=== PATIENT | male | born 1975 | race Hispanic/Latino ===

== ENCOUNTER 2021-11-27 12:46 | Emergency (ER) | payer SELFPAY ==
--- NOTE | 2021-11-27 12:53 | ED.WOUNDLAC ---
HPI - Wound/Laceration General Chief Complaint: Wound/Laceration Stated Complaint: cut bottom lip Time Seen by Provider: 11/27/21 13:42 Source: patient and RN notes reviewed Mode of arrival: ambulatory Limitations: no limitations History of Present Illness HPI narrative: 46-year-old male presents with concern for injury below his mouth. Reports he was hit in the area by the head of a baby horse just prior to arrival. He reports a cut to the bottom of his lip, he also reports a cut on the inside of his lip. He denies any loose teeth, head injury. He denies tongue injury. He is not up-to-date on his tetanus vaccination Location: face Related Data Allergies Allergy/AdvReac Type Severity Reaction Status Date / Time No Known Allergies Allergy Verified 11/27/21 13:52 Review of Systems Review of Systems: CONSTITUTIONAL: Denies malaise, chills, sweats, or fever. SKIN: Reports laceration below the lower MUSCULOSKELETAL: Denies muscle skeletal pain. Denies any decree strength, sensation and oral movements, lip or face movements NEUROLOGIC: Denies numbness, weakness All systems reviewed & are unremarkable except as noted in HPI and below PMFSH Comments At time of signature, agree with nursing past medical, surgical, social and family history. There is no relevant family history pertinent to the presenting complaint Exam Narrative: GENERAL: Well-appearing, well-nourished, and in no acute distress. HEAD: Normocephalic, atraumatic. EYES: PERRLA, conjunctivae clear, and EOMI. ENT: Mucous membranes moist. Oropharynx without edema, erythema or lesions. NECK: Supple. No lymphadenopathy CHEST: Clear to auscultation. No respiratory distress. HEART: Regular rate and rhythm. SKIN: Warm, dry. 2 cm laceration noted below the bottom lip, through and through to the laceration on the inside of the lip approximately 1.5 cm NEURO: Alert and oriented x3. PSYCH: Normal mood and affect HENMT: Head images: 1. Laceration through and through. Patient able to purse lips without weakness, full range of oral motion normal Course Course Emergency Course: Patient is aware of diagnosis, understands and agrees to treatment plan. Anticipatory guidance given. Patient agrees to follow-up as directed and is aware of reasons to seek care at the emergency department. Portions of this record may have been created with voice recognition software Level of Care: Express Care Visit Vital Signs Vital signs: Vital Signs Temperature 97.2 F L 11/27/21 13:00 Pulse Rate 66 11/27/21 13:00 Respiratory Rate 18 11/27/21 13:00 Blood Pressure 143/95 H 11/27/21 13:00 Pulse Oximetry 99 11/27/21 13:00 Oxygen Delivery Room Air 11/27/21 13:00 Temperature 97.2 F L 11/27/21 13:00 Pulse Rate 66 11/27/21 13:00 Respiratory Rate 18 11/27/21 13:00 Blood Pressure 143/95 H 11/27/21 13:00 Pulse Oximetry 99 11/27/21 13:00 Oxygen Delivery Room Air 11/27/21 13:00 Reviewed. Procedures Laceration Laceration 1: Date: 11/27/21 Time: 14:02 Site: face Size (cm): 2 Description: irregular Depth: [id number] Local Anesthetic: lidocaine 1% Amount of anesthesia used (mL): 3 Pre-repair: wound explored and irrigated extensively ====== Skin Level ====== Skin layer closed with: nylon Size (cm): 5-0 Number of sutures: 6 Technique: simple, interrupted ====== Subcutaneous Layer ====== ====== Muscle Layer ====== Muscle layer closed with: vicryl Size: 4-0 Number of sutures: 3 Technique: simple, interrupted ====== Tendon Layer ====== MDM - Wound/Laceration MDM Narrative Medical decision making narrative: Wound explored for foreign body and copious irrigation provided with no evidence of FB. Discussed the potential of retained foreign body with the patient and signs/symptoms that should prompt the patient to
[2021-11-27 13:00] VITALS: BP 143/95; PULSE 66; RESP 18; TEMP 36.2; O2SAT 99
[2021-11-27] MEDS: TETANUS,DIPHTHERIA,AC PERTUSSIS ADULT (0.5 ML) BOOSTRIX IM (14:34)
== END 2021-11-27 14:39 | disposition home or self-care (01) ==
PROVIDERS: Emergency Provider Nurse Practitioner
DX: S01.81XA Laceration without foreign body of other part of head, initial encounter (principal); W22.8XXA Striking against or struck by other objects, initial encounter; Z23 Encounter for immunization
CPT/HCPCS: 12011; 90471; 90715; 99203; G0463